=== PATIENT | female | born 2000 | race Caucasian/White ===

== ENCOUNTER 2023-05-20 14:14 | Outpatient (CLI) | payer OTHER, SELFPAY | END 2023-05-20 14:15 | disposition home or self-care (01) | LOC: ANHAUDIO 14:16 | PROVIDERS: PCP Otolaryngology; Visit Provider Otolaryngology | DX: H90.5 Unspecified sensorineural hearing loss (principal) | CPT/HCPCS: 92552; 92556; 92567 ==